=== PATIENT | female | born 1980 | race Asian ===

== ENCOUNTER 2017-01-05 05:05 | Inpatient (IN) | payer OTHER ==
[~2017-01-05] VITALS: Ht 165.1 cm; Wt 65.8 kg
[2017-01-05] MEDS ORDERED: ceFAZolin 1,000 MG VIAL ONE (06:04)
[2017-01-05] MEDS ORDERED: LACTATED RINGERS 1,000 ML IV SCH (06:17)
[2017-01-05] MEDS ORDERED: PRENATAL VITAMI1 TA2 PO (06:36)
[2017-01-05] MEDS ORDERED: CITRIC ACID/SODIUM CITRATE 30 ML UDC PO SCH (07:00)
[2017-01-05] MEDS ORDERED: BUPIVACAINE-MPF 0.75% 10 ML VIAL INJ ONE (07:23)
[2017-01-05] MEDS ORDERED: ePHEDrine 50 MG/ML VIAL ONE (07:23)
[2017-01-05] MEDS ORDERED: OXYTOCIN 10 UNITS/ML VIAL ONE ×3 (07:36→22:51)
[2017-01-05] MEDS ORDERED: TRIAMCINOLONE 40 MG/ML 5ML VIAL ONE (07:36)
[2017-01-05] MEDS ORDERED: MORPHINE PRES FREE 10 MG/10 ML AMP IV ONE (07:38)
[2017-01-05] MEDS ORDERED: fentaNYL 0.05 MG/ML VIAL ONE (07:38)
[2017-01-05] MEDS ORDERED: diphenhydrAMINE 50 MG/ML VIAL IVP PRN (08:00)
[2017-01-05] MEDS ORDERED: KETOROLAC 60 MG/2 ML VIAL IM PRN (08:00)
[2017-01-05] MEDS ORDERED: NALBUPHINE 10 MG/ML AMP IVP PRN (08:00)
[2017-01-05] MEDS ORDERED: ONDANSETRON 4 MG/2 ML VIAL IVP PRN ×2 (08:00)
[2017-01-05] MEDS ORDERED: NALOXONE 0.4 MG/ML VIAL IVP PRN ×3 (08:00)
[2017-01-05] MEDS ORDERED: oxyCODONE/APAP 5/325 MG 1 TAB TAB PO PRN (08:25)
[2017-01-05] MEDS ORDERED: IBUPROFEN 800 MG TAB PO PRN (08:25)
[2017-01-05] MEDS ORDERED: MEASLES, MUMPS, AND RUBELLA 1 VIAL SQVAC PRN (08:25)
[2017-01-05] MEDS ORDERED: HYDROcodone/APAP 5/325 MG 1 TAB TAB PO PRN (08:25)
[2017-01-05] MEDS ORDERED: SIMETHICONE 80 MG TAB.CHEW PO PRN (08:25)
[2017-01-05] MEDS ORDERED: METHYLERGONOVINE 0.2 MG/ML AMP IM PRN (08:25)
[2017-01-05] MEDS ORDERED: TRIMETHOBENZAMIDE 200 MG/2 ML SYR IM PRN (08:25)
[2017-01-05] MEDS ORDERED: TEMAZEPAM 15 MG CAP PO PRN (08:25)
[2017-01-05] MEDS ORDERED: diphenhydrAMINE 50 MG/ML VIAL ONE (08:29)
[2017-01-05] MEDS ORDERED: OXYTOCIN 20 UNITS/LR PREMIX 1,000 ML IV ONE (08:29)
[2017-01-05] MEDS ORDERED: ONDANSETRON 4 MG/2 ML VIAL ONE (08:45)
--- NOTE | 2017-01-05 09:06 | NUR ---
PATIENT HAS BEEN SCREENED AND CATEGORIZED LOW NUTRITION RISK. PATIENT WILL BE SEEN WITHIN 7 DAYS OF ADMISSION. 01/11/[address]
[2017-01-05] MEDS ORDERED: METHYLERGONOVINE 0.2 MG/ML AMP ONE (09:07)
[2017-01-05] MEDS: OXYTOCIN 20 UNITS in LACTATED RINGERS 1,000 ML IV SCH ×2 (15:45→22:46)
[2017-01-05] MEDS: DOCUSATE SOD/SENNA 50/8.6 MG 1 TAB PO SCH (21:59)
[2017-01-05] MEDS: KETOROLAC 30 MG/ML VIAL IVP PRN (22:41)
[2017-01-06] MEDS: KETOROLAC 30 MG/ML VIAL IVP PRN (06:11)
[2017-01-07] MEDS: DOCUSATE SOD/SENNA 50/8.6 MG 1 TAB PO SCH (21:14)
[2017-01-08] MEDS ORDERED: MOTRIN600 MG PO (09:10)
== END 2017-01-08 14:00 | disposition home or self-care (01) | DRG 540 ==
LOC: MFCC 05:05 → EDSTATUS 15:53
PROVIDERS: ADMIT Obstetrics & Gynecology; ATTEND Obstetrics & Gynecology
PROC: 0UB70ZZ Excision of Bilateral Fallopian Tubes, Open Approach (ICD-10-PCS; 2017-01-05)
PROC: 3E0234Z Introduction of Serum, Toxoid and Vaccine into Muscle, Percutaneous Approach (ICD-10-PCS; 2017-01-05)
PROC: 10D00Z1 Extraction of Products of Conception, Low, Open Approach (ICD-10-PCS; principal; 2017-01-05 07:30)
DX: O34.211 Maternal care for low transverse scar from previous cesarean delivery (principal); Z23 Encounter for immunization; Z30.2 Encounter for sterilization; Z37.0 Single live birth; Z3A.39 39 weeks gestation of pregnancy